=== PATIENT | male | born 1965 | race Caucasian/White ===

== ENCOUNTER → 2018-10-10 08:35 | Outpatient (CLI) | payer MEDICARE ==
[2015-10-31 07:13] VITALS: BMI 37.0
[~2018-10-10 08:35] MED LIST: ADIPEX-P37.5 M1 PO; AMBIEN10 MG PO; ARAVA10 MG PO; ELAVIL10 MG PO; FIORICET/ESGIC1 TAB PO; FLOMAX0.4 MG PO; FOLATE0.4 MG PO; IMITREX100 MG PO; LIDEX 0.05% OIN15 GM TP; LOVENOX30 MG/0.3 SC; NORCO 10/325 TA1 TA1 PO; OXYCONTIN10 MG PO; PRILOSEC20 MG PO; RYBIX ODT50 MG PO; TREXALL7.5 MG; XARELTO20 MG PO; ZANAFLEX4 MG PO
== END | disposition home or self-care (01) ==
LOC: D.US 10-04 11:00
PROVIDERS: ATTEND Internal Medicine Medical Oncology
DX: R60.9 Edema, unspecified (principal)

== ENCOUNTER 2019-01-05 13:40 | Emergency (ER) | payer MEDICARE ==
[2019-01-05 13:48] VITALS: BP 128/84; BMI 37.8
[2019-01-05] MEDS ORDERED: BAYER CHEWABLE81 MG PO (13:52)
[2019-01-05] MEDS ORDERED: NORVASC5 MG PO (13:52)
[2019-01-05] MEDS ORDERED: MOBIC7.5 MG PO (14:05)
== END 2019-01-05 16:19 | disposition home or self-care (01) ==
LOC: D.ER 13:40
DX: S16.1XXA Strain of muscle, fascia and tendon at neck level, initial encounter (principal); V43.52XA Car driver injured in collision with other type car in traffic accident, initial encounter; Y93.89 Activity, other specified; Y92.410 Unspecified street and highway as the place of occurrence of the external cause

== ENCOUNTER → 2019-02-28 09:32 | Outpatient (CLI) | payer MEDICARE ==
[~2019-02-28 09:32] MED LIST changes: +BAYER CHEWABLE81 MG PO; +MOBIC7.5 MG PO; +NORVASC5 MG PO
== END | disposition home or self-care (01) ==
LOC: D.MRI 02-27 09:00
PROVIDERS: ATTEND Clinical Nurse Specialist Family Health
DX: M25.561 Pain in right knee (principal)

== ENCOUNTER → 2019-05-11 09:01 | Outpatient (CLI) | payer MEDICARE | END | disposition home or self-care (01) | LOC: D.US 09:00 | PROVIDERS: ATTEND Family Medicine | DX: M79.604 Pain in right leg (principal) ==

== ENCOUNTER → 2019-08-23 08:58 | Outpatient (CLI) | payer MEDICARE | END | disposition home or self-care (01) | LOC: D.US 08:58 | PROVIDERS: ATTEND Internal Medicine Medical Oncology | DX: I80.202 Phlebitis and thrombophlebitis of unspecified deep vessels of left lower extremity (principal); I26.99 Other pulmonary embolism without acute cor pulmonale ==

== ENCOUNTER → 2019-10-17 15:10 | Outpatient (CLI) | payer MEDICARE | END | disposition home or self-care (01) | LOC: D.MRI 15:10 | PROVIDERS: ATTEND Orthopaedic Surgery | DX: S83.232A Complex tear of medial meniscus, current injury, left knee, initial encounter (principal) ==

== ENCOUNTER → 2020-01-17 12:42 | Outpatient (CLI) | payer MEDICARE | END | disposition home or self-care (01) | LOC: D.CT 12:42 | PROVIDERS: ATTEND Family Medicine | DX: R06.00 Dyspnea, unspecified (principal) ==